=== PATIENT | male | born 1935 | race Caucasian/White ===

== ENCOUNTER 2019-07-19 13:43 | Observation (INO) ==
[2019-07-19] MEDS ORDERED: Gadolinium Contrast Agent (WT Based) IV PRN (14:02)
[2019-07-19 14:40] LABS: Hematocrit 33.8 % (37.5-50.1); Hemoglobin 10.9 g/dL (12.9-16.9); Immature Platelets 4.8 % (1.1-6.1); Mean Corpuscular HGB Conc 32.2 g/dL (31.6-35.5); Mean Platelet Volume 11.4 fL (9.4-12.4); Red Blood Count 3.52 M/mcL (4.19-5.50); Red Cell Distribution Width 14.6 % (11.5-14.5); White Blood Count 6.4 K/mcL (4.3-11.1)
[2019-07-19 15:04] LABS: INR 1.5; Prothrombin Time 16.6 Seconds (9.4-12.1)
[2019-07-19 15:06] LABS: Activated Partial Thrombo Time 36.1 Seconds (26.0-36.0)
[2019-07-19 15:11] LABS: BUN/Creatinine Ratio 18 (6-26); Blood Urea Nitrogen 27 mg/dL (8-23); Carbon Dioxide 24 mEq/L (23-29); Chloride 108 mEq/L (98-107); Glucose 82 mg/dL (70-105); Osmolality,Calculated 296 (280-300); Potassium 4.4 mEq/L (3.5-5.1); Sodium 141 mEq/L (136-145); eGFR For African Americans 56 (> 60); eGFR For Non-African Americans 46 (> 60)
[2019-07-19] MEDS ORDERED: Naloxone 0.4 MG/ML INJ IVP PRN (15:20)
[2019-07-19] MEDS ORDERED: *HR* Dextrose 50 % in Water (Syg) 50 ML SYRINGE IVP PRN (15:23)
[2019-07-19] MEDS ORDERED: Dextrose Gel 15 GM/37.5 ML TUBE PO PRN ×2 (15:23)
[2019-07-19] MEDS ORDERED: D5% in Water 1,000 ML IVC PRN (15:23)
[2019-07-19 15:34] LABS: Troponin I < 0.03 ng/mL (< 0.04)
[2019-07-19] MEDS ORDERED: *HR* Acetaminophen w/Cod 300-30 mg 1 TAB TABLET PO PRN (15:44)
[2019-07-19 15:55] LABS: Estimated Average Glucose 137 mg/dl
[2019-07-19] MEDS: Insulin LISPRO 300 UNITS/3 ML VIAL SQ SCH (20:28)
[2019-07-20 02:19] LABS: INR 1.1
[2019-07-20 02:36] LABS: BUN/Creatinine Ratio 24 (6-26); Blood Urea Nitrogen 32 mg/dL (8-23); Calcium 8.8 mg/dL (8.6-10.3); Carbon Dioxide 22 mEq/L (23-29); Chloride 107 mEq/L (98-107); Glucose 89 mg/dL (70-105); Osmolality,Calculated 294 (280-300); Sodium 139 mEq/L (136-145); eGFR For African Americans > 60 (> 60); eGFR For Non-African Americans 51 (> 60)
[2019-07-20] MEDS ORDERED: Fluticasone Propionate Nasal 50 MCG/SPRAY BOTTLE NS SCH (09:00)
[2019-07-20] MEDS ORDERED: *HR* Rivaroxaban 15 MG TABLET PO SCH (09:00)
[2019-07-20] MEDS ORDERED: Lisinopril 20 MG TABLET PO SCH (09:00)
[2019-07-20] MEDS: Insulin LISPRO 300 UNITS/3 ML VIAL SQ SCH ×2 (09:42→11:33)
[2019-07-20 11:14] VITALS: BP 128/56
[2019-07-20 11:46] LABS: C-Reactive Protein < 5 mg/L (Less than 10)
== END 2019-07-20 13:56 | disposition home or self-care (01) ==
LOC: EMEROOARM 13:43 → 3BNU 13:43 → SUATTDRO 15:50 → 3BNU 17:32
PROVIDERS: ADMIT Internal Medicine; ATTEND Internal Medicine